=== PATIENT | female | born 1955 | race African-American/Black ===

== ENCOUNTER 2019-04-24 13:53 | Outpatient (RCR) | payer OTHER, SELFPAY ==
--- NOTE | 2019-04-24 15:43 | PTOPEVAL ---
PHYSICAL THERAPY EVALUATION AND PLAN OF CARE Thank you for referring this patient to [facility]. I Recommend Asmita participate in PT 2x/week for 4-8weeks to address bilateral knee pain as well as decreased strength, impaired gait, and impaired balance. Please review, sign, date and return this plan of care BRETT. I agree with and certify that the following plan of care is medically necessary. Referring Physician Date Evaluation Outpatient Past Medical History Neurological History Hx Seizures Yes: medication Hx Other Neurological Disorders Yes: aneurysm left side surgery; R sided aneurysm Cardiovascular History Hx Deep Vein Thrombosis Yes Hx Hypertension Yes: medication Respiratory History Hx Sleep Apnea Yes: CPAP machine Evaluation Information Problem Diagnosis bilateral knee pain; effusion Onset 1 month ago Additional Evaluation Detail BP: 102/69 - reports feeling lighthead and dizzy today ( reports normal systolic pressure is around 115) HR: 88bpm Subjective Information Reports that about a month ago Query Text:As Reported By Patient/ , she stepped and twisted and Family the right knee was affected. Because of increased pressure on the left from protecting the right, the left is starting to hurt the same. Bilateral Knee(s) Reported Pain Level 6 Pain Description Aching,Sharp,Shooting Pain Frequency Acute,Continuous Current Pain Intensity 6 Lowest Pain Intensity 5 Pain Aggravating Factors Exercise/Activity,Prolonged Position,Stair Climbing, Walking,Weight Bearing/ Standing Pain Behaviors Anxious,Guarding,Moaning Pain Score Pain Score 6: Self Report Knee Range of Motion Bilateral WNL/Left,WNL/Right Hip Strength Bilateral Hip Flexion Strength 3+ Fair + Hip Abduction Strength 3 Fair Knee Strength Bilateral Knee Flexion Strength 4- Good - Knee Extension Strength 4- Good - Palpation thickened quadriceps muscles; severe hypomobility of bilateral patella Balance Assessment Time Up Go (TUG) Timed Up and Go Test (TUG) (Seconds) 17 Assistive Devices None 5 Time Sit to Stand Time in Seconds 32.56 5 Time Sit to Stand Comments with arm rests Query Text:Normative Data: If Greater Than 15 Second
--- NOTE | 2019-05-16 14:05 | PCPTNOTE ---
PHYSICAL THERAPY DISCHARGE NOTE Patient:Asmita Miller Date of :1955 Asmita has not returned for any further treatments since 04/24/2019, therefore she will be discharged from therapy at this time. She attended her evaluation and cancelled 2 appointments and made no further appointments. The goals have been partially achieved. Thank you for referring this patient to [facility]. Please review, sign, date and return this discharge summary BRETT. I have been updated about the patient's current status and I agree with discharge from the above service at this time. Referring Physician Date
== END 2019-05-17 14:40 | disposition home or self-care (01) ==
LOC: ANHPT 13:53
DX: M25.469 Effusion, unspecified knee (principal)
CPT/HCPCS: 97162

== ENCOUNTER 2021-04-08 10:25 | Outpatient (CLI) | payer MEDICARE, MEDICAID, SELFPAY ==
--- NOTE | ~2021-04-08 | MM_ITS ---
EXAMINATION: MM screening werner BI w gautam HISTORY: Screening TECHNIQUE: Craniocaudal and mediolateral oblique 3-D tomosynthesis images were obtained and synthetic 2-D images were generated. CAD analysis was submitted and interpreted. COMPARISON: 02/27/2019 BREAST PARENCHYMAL COMPOSITION: There are scattered areas of fibroglandular density. FINDINGS: There is no evidence of suspicious mass, calcification, or architectural distortion to sugg est malignancy in either breast. There has been no suspicious interval change. IMPRESSION: 1. No mammographic evidence of malignancy. 2. Recommend routine screening mammography in one year. BI-RADS Category 1: Negative Reviewed, dictated and finalized at location A. [employer]
== END 2021-04-08 10:26 | disposition home or self-care (01) ==
LOC: ANHIMG 10:28
PROVIDERS: PCP Physician Assistant; Visit Provider Physician Assistant
DX: Z12.31 Encounter for screening mammogram for malignant neoplasm of breast (principal)
CPT/HCPCS: 77063; 77067